=== PATIENT | female | born 1965 | race Caucasian/White ===

== ENCOUNTER 2019-06-19 15:04 | Observation (INO) | payer OTHER, SELFPAY ==
[2019-06-19] VITALS (11 sets, daily range): BP systolic 107–135; BP diastolic 59–86; PULSE 73–86; RESP 11–16; TEMP 36.6–37.7; O2SAT 98–100
[2019-06-19 15:35] LABS: Bilirubin Negative (Negative); Blood Negative (Negative); Clarity Clear (Clear); Glucose Negative (Negative); Ketones 80 mg/dL (Negative); Leukocyte Esterase Trace (Negative); Nitrite Negative (Negative); Urobilinogen 0.2 EU/dL (Up TO 0.2)
--- NOTE | 2019-06-19 15:41 | ED.GENADUL_ITS ---
Discharge Plan Disposition Patient Disposition: [facility] INPATIENT Condition: Good Discharge Details Chief Complaint: Abd Prob Admit Date/Time: 06/19/19 20:32 Admit Provider: Elda Aguilar Attending Provider: Elda Aguilar Primary Care Provider: Charlene Pimentel ED Provider: Katarzyna Ruiz Discharge Instructions Activity:: No strenuous activity or lifting over 5 pounds x 2 weeks Equipment/Supplies:: No Equipment Needed Diet:: Normal Diet Discharge Orders Discharge Orders: Discharge Order (Routine); Ordered 06/20/19 Ordered By: Elda Aguilar Discharge Data Discharge Date/Time-TO BE ENTERED AT DEPARTURE: 06/19/19 19:00 Medical Decision Making <Sanjeev Méndez MD - Last Filed: 06/25/19 08:05> 54-year-old female presents from home with 2 days of the gradual onset of lower right-sided abdominal pain. She states that it began after eating large amounts of popcorn, and also states she has been undergoing a raw fruit and vegetable cleanse. The patient is afebrile and generally well-appearing. She is tender in the right lower quadrant upon exam. Differential diagnosis includes diverticulitis, appendicitis, ascending urinary tract infection, colitis, partial bowel obstruction or ileus. IV placed, labs and urinalysis obtained, patient referred for CT images. As it is change of shift, patient will be signed out to Chely Zapata pending review of diagnostic studies and final disposition. Please see her note. <JOE Kay - Last Filed: 06/20/19 23:56> Care transitioned to myself from Dr. Méndez with labs and imaging pending. Please see his note for history and initial presentation. Labs reviewed. Patient has leukocytosis of 13.4, neutrophils 11.42. Slight anion gap of 12.3. CT is reviewed by radiologist, they contacted apartment to report patient has acute appendicitis. 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 Patient is aware of this anomaly. Discussed the findings of appendicitis with the patient. Contacted Dr. Villanueva he will come to evaluate and plan for appendectomy. Patient hydrated intravenously. Received preoperative abx. Has remained NPO. Discussed plan and CT findings in depth with patient and her family. All questions and concerns addressed. HPI <Sanjeev Méndez MD - Last Filed: 06/25/19 08:05> General Mode of arrival: ambulatory . Date/Time Provider Initiated Documentation: 06/19/19 15:11 . Limitations to Documentation: no limitations . Information obtained by: patient . History of Present Illness 54 year old F presents to the emergency department with the chief complaint of Right lower abdominal pain for 2 days with associated bloating, described as moderate, Quality is described as dull, and is localized to the abdomen and right. Patient started experiencing this day(s) and it has been constant. No relieving factors improve symptom(s), Eating worsens symptoms . Patient notes loss of appetite; denies fever/chills. Patient did receive the following treatments prior to arrival, none Related Data Home Medications Medication Instructions Recorded Confirmed cyclobenzaprine 5 - 10 mg PO HS PRN 06/19/19 06/19/19 gabapentin 100 - 300 mg PO QHS 06/19/19 06/19/19 ibuprofen 800 mg PO Q8H PRN #60 tab 06/20/19 Previous Rx's Medication Instructions Recorded ibuprofen 800 mg PO Q8H PRN #60 tab 06/20/19 Allergies Allergy/AdvReac Type Severity Reaction Status Date / Time egg Allergy Mild Skin Rash Unverified 06/19/19 15:27 [place] Allergy Unknown Unverified 06/19/19 15:27 [Floris *RETIRED-02/06/15] lactose AdvReac Intermediate Diarrhea Unverified 06/19/19 15:27 DUST Allergy Unknown Uncoded 06/19/19 15:27 G.DOMESTICUS DUST MITE Allergy Unknown Uncoded 06/19/19 15:27 General Stated Complaint: Abd Prob FILIBERTO: 3 Review of Systems <Sanjeev Méndez MD - Last Filed: 06/25/19 08:05> Narrative: Began after eating popcorn. Currently on a cleanse with raw vegetables and fruits. No fever. Marble constipated yesterday. No emesis. 8 systems reviewed and otherwise negative PFSH <Sanjeev Méndez MD - Last Filed: 06/25/19 08:05> Medical History (Updated 06/19/19 @ 18:54 by Elda Aguilar DO) Appendicitis (Acute) Dysfunctional uterine bleeding onset 04/2010. Heavy flow with intermenstrual bleeding. Dyspareunia entry dyspareunia after LAVH. Pt referred to [facility] for pelvic floor rehab. Intramural leiomyoma of uterus 2013 multiple fibroids [id number] intramural. [id number] intramural with submucosal component. Microcytic anemia 2012 Secondary to menorrhagia? Surgical History Breast, Lumpectomy RIGHT MASS REMOVED Colonoscopy - MAC 06/23/14 Endometrial Biopsy (10/01/13) Hysterectomy, Laproscopic LAVH with conservation of ovaries. 10cm fibroid. benign path. Thyroid (~1984) TUMOR REMOVED Tonsillectomy and adenoidectomy Family History Mother Personal history of malignant neoplasm BREAST Father Essential hypertension Autoimmune disease Heart disease LAMINECTOMY Sister Hyperthyroidism Sister Hyperthyroidism Grandfather Heart disease Stroke Grandfather Stroke Grandmother Personal history of malignant neoplasm BREAST Alzheimer's disease Grandmother Alzheimer's disease Heart disease Social History Smoking/Tobacco Use Status: Never Drug use: Never Do you feel safe at home: Yes Do you feel safe in your relationship?: Yes Exam <Sanjeev Méndez MD - Last Filed: 06/25/19 08:05> Narrative Exam Narrative: GEN: awake, alert, oriented 3. Pleasant, well groomed, interactive. HEAD: Normocephalic, atraumatic ENT: Mucous membranes moist, oropharynx unremarkable, External ear exam unremarkable EYES: PERRL, EOMI NECK: Full ROM, no [place], no menigismus CHEST/RESP: Nontender, clear to auscultation bilateral, no wheeze/rhonchi/rales CARDIOVASCULAR: RRR, no murmur, rub dennise. 2+ Rad pulse bilateral ABDOMEN: Soft, lower to right sided tenderness to palpation, mild rebound present, no mass. +Bowel sounds EXT: Full ROM, no edema, no rash Neuro: Grossly normal neurologic exam, conversant, interactive. Psych: Speech fluent, thoughts congruent, affect normal Course <Sanjeev Méndez MD - Last Filed: 06/25/19 08:05> Vital Signs Vital signs: Vital Signs Temperature 37.1 C 06/19/19 15:15 Pulse 73 06/19/19 15:15 Respiratory Rate 15 06/19/19 15:15 Blood Pressure 109/65 06/19/19 15:15 Pulse Oximetry 100 06/19/19 15:15 Temperature 37.1 C 06/19/19 15:15 Temperature Source Temporal Artery Scan 06/19/19 15:15 Pulse 73 06/19/19 15:15 Respiratory Rate 15 06/19/19 15:15 Respiratory Effort Non-Labored 06/19/19 15:22 Blood Pressure 109/65 06/19/19 15:15 Blood Pressure Position Supine 06/19/19 15:15 Pulse Oximetry 100 06/19/19 15:15 Oxygen Delivery Method Room Air 06/19/19 15:15 Oxygen Flow Rate 0 06/19/19 15:15 Pain Level 6 06/19/19 15:24 Lab/Test Results Lab/Test Results: Laboratory Tests Range/Units 06/19/19 15:15 Urine Color (Yellow) Yellow Urine Clarity (Clear) Clear Urine pH (5-8) 7.0 Ur Specific [place] (1.005-1.025) 1.020 Urine Protein (Negative) mg/dL Negative Urine Ketones (Negative) mg/dL 80 H Urine Blood (Negative) Negative Urine Nitrite (Negative) Negative Urine Bilirubin (Negative) Negative Urine Urobilinogen (Up TO 0.2) EU/dL 0.2 Ur Leukocyte Esterase (Negative) Trace H Urine Glucose (Negative) mg/dL Negative Sign Out <Sanjeev Méndez MD - Last Filed: 06/25/19 08:05> Sign Out Data: Sign Out Comment: FOllowup CT/labs Last updated by Sanjeev Méndez MD at 06/19/19 15:47
[2019-06-19 15:53] LABS: Bacteria Rare HPF (Negative); C & S Indicated? No; Crystals Negative HPF (Negative); Epithelial Cells Few HPF (Negative); Mucus Trace (Negative); RBC 0-2 HPF (0-2); WBC 0-2 HPF (0-5)
[2019-06-19] MEDS: Normal Saline 1,000 ML 1000 ML IV (16:05)
[2019-06-19 16:14] LABS: Abs Immature Grans 0.01 k/cumm (0.0-0.09); Absolute Basophil Count 0.01 k/cumm (0.0-0.2); Absolute Eosinophil Count 0.03 k/cumm (0.0-0.7); Absolute Lymphocyte Count 1.23 k/cumm (1.2-3.4); Absolute Monocyte Count 0.77 k/cumm (0.11-0.7); Absolute Neutrophil Count 11.42 k/cumm (1.2-6.7); Basophils % 0.1; Eosinophils % 0.2; HCT 41.8 % (36.0-46.0); HGB 14.3 g/dL (12.0-15.5); Immature Grans % 0.1; Lymphocytes % 9.1; Mean Corp. HGB Concentration 34.2 g/dL (32.0-36.0); Mean Corpuscular Hemoglobin 30.1 pg (27.0-33.0); Mean Platelet Volume 11.9 fL (8.0-11.0); Monocytes % 5.7; Neutrophils % 84.8; Platelet Count 187 x1000/uL (130-400); RBC 4.75 m/cumm (4.00-5.20); RBC Distribution Width 12.8 % (11.7-14.6); White Blood Cell Count 13.47 k/cumm (4.4-10.8)
[2019-06-19 16:30] LABS: ALT 13 U/L (14-59); AST 16 U/L (15-37); Alkaline Phosphatase 87 U/L (46-116); Anion Gap 12.3 mmol/L (3-11); BUN 12 mg/dL (7-18); Bilirubin, Total 1.2 mg/dL (0.2-1.0); CO2 24.7 mmol/L (21.0-32.0); CREATININE 0.73 mg/dL (0.55-1.02); Calcium 9.2 mg/dL (8.5-10.1); Chloride 102 mmol/L (98-107); Glucose 92 mg/dL (74-106); Potassium 3.6 mmol/L (3.5-5.1); Sodium 139 mmol/L (136-145); Total Protein 7.5 g/dL (6.4-8.2)
--- NOTE | 2019-06-19 16:54 | DI.CT_ITS ---
EXAM: CT ABDOMEN PELVIS W CLINICAL HISTORY: Right lower quadrant abdominal pain TECHNIQUE: 89 cc Omnipaque 350 IV. COMPARISON: No exams were available for comparison FINDINGS: The appendix is markedly distended. There is wall thickening as well as stranding around the appendi x. There is a small amount of fluid in the posterior pelvis. No abscess or perforation is seen. Th ere is no evidence of bowel obstruction. A horseshoe kidney is noted. There is some dilatation of b oth the renal pelves but no evidence of dilated ureter or ureteral calculi. Bladder is unremarkable. The patient is status hysterectomy. The ovaries are unremarkable. The lung bases are clear. The heart size is normal. A tiny cyst is noted in the liver. The gallbladder, spleen, pancreas and adre nals are unremarkable. Degenerative disc changes are seen at L3-4. The aorta is normal diameter. IMPRESSION: Acute appendicitis. No evidence of perforation or abscess.
[2019-06-19] MEDS: Normal Saline Flush 10 ML SYR IVP ×3 (16:58→22:55)
[2019-06-19] MEDS: Omnipaque 350 MG/ML 100 ML BTL IJ (16:58)
--- NOTE | 2019-06-19 17:51 | DI.VRAD_ITS ---
PROCEDURE INFORMATION: Exam: CT Abdomen And Pelvis With Contrast Exam date and time: 06/19/2019 3:45 PM Age: 54 years old Clinical history: Other: Right lower quadrant abdominal pain; Prior surgery; Surgery date: 6+ months; Surgery type: Hysterectomy 5 years ago TECHNIQUE: Imaging protocol: Computed tomography of the abdomen and pelvis with intravenous contrast. Radiation optimization: All CT scans at this facility use at least one of these dose optimization techniques: automated exposure control; mA and/or kV adjustment per patient size (includes targeted exams where dose is matched to clinical indication); or iterative reconstruction. Contrast material: OMNIPAQUE 350; Contrast volume: 89 ml; Contrast route: IV; COMPARISON: No relevant prior studies available. FINDINGS: Liver: There is a 3 mm well-circumscribed low-density in segment 7 of the liver (series 4, image 18). The liver is otherwise unremarkable. Gallbladder and bile ducts: Normal. No calcified stones. No ductal dilation. Pancreas: Normal. No ductal dilation. Spleen: Normal. No splenomegaly. Adrenals: Normal. No mass. 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 There is mild fullness of the renal collecting systems bilaterally greater on the left than the right. No renal or ureteral stone is identified. Stomach and bowel: Unremarkable. No obstruction. No mucosal thickening. Appendix: The appendix is distended up to 13 mm with mild irregular wall thickening and surrounding fat stranding consistent with acute appendicitis. There is a trace of free fluid within the pelvis which may related to the appendicitis but is more likely physiological. Intraperitoneal space: Unremarkable. No free air. No significant fluid collection. Vasculature: Unremarkable. No abdominal aortic aneurysm. Lymph nodes: Unremarkable. No enlarged lymph nodes. Bladder: Unremarkable as visualized. Reproductive: Unremarkable as visualized. Bones/joints: There is convex left scoliosis of the lumbar spine with corresponding degenerative disc disease along the inner convexity on the right at L3-4 and on the left at L4-5. Vertebral end plate osteophyte at L3-4 extends posteriorly to moderately narrow the right neural foramen. Small benign-appearing sclerotic foci consistent with bone islands are noted in the right femur and right ischium. Soft tissues: Unremarkable. IMPRESSION: 1. Acute appendicitis without perforation or abscess. 2. Small amount of free fluid within the pelvis which is likely physiological but less likely related to the appendicitis. 3. 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 This is likely chronic. 4. 3 mm low-density hepatic lesion. For low or average risk patients, no further follow-up. For high risk patients, follow-up CT or MRI in 6 months. May need more frequent follow-up in some situations, such as a cirrhotic patient who is a liver transplant candidate. Findings were discussed with EDITH MOLINA at 06/19/2019 5:33 PM EST. Dictated and Authenticated by: Johnathon Wagner MD. Ordering:JENNY Pace MD
[2019-06-19] MEDS: Lactated Ringers 1,000 ML 200 ML IV (17:54)
--- NOTE | 2019-06-19 18:06 | HPE_ITS ---
Date of service: 06/19/19 Time of Service: 18:10 Assessment and Plan Assessment and plan (1) Appendicitis: Status: Acute Assessment and plan: Patient will be going for laparoscopic appendectomy. I did review the CT scan scans and labs. I did discuss with patient what she could expect during the surgery postprocedure recovery time and risks. Risks include but not limited to: Bleeding, infection, pneumonia, blood clots,. Complex risk of complications from anesthesia. Risk of abscess. Possible open procedure. We will plan on keeping her overnight for have been described in the baring no further complications History of Present Illness Consults Consult date: 06/19/19 Narrative: 54-year-old female presents from home with 2 days of the gradual onset of lower right-sided abdominal pain. She states that it began after eating large amounts of popcorn, and also states she has been undergoing a raw fruit and vegetable cleanse. The pain at this point is in the right lower quadrant at McBurney's point. Radiates down into the groin into the right leg. This occurred in the past. She was having some constipation and took a stool softener. She had a normal bowel movement today with no blood. She had chills at home and a little slight elevated temp at 99.8 today. She was very nauseous and has been able to eat. She denies any dysuria signs and symptoms. She is never had anything like this before, she has no history of GI problem. She denies any travel or trauma. She has been on a dietary cleanse for the last 5 days. She is has not started new medications. Had a history of LAVH. She had no problems with anesthesia. CT scan is reviewed and shows acute appendicitis. She has a low-grade white count. She has no diffuse peritonitis. Rovsing's and rebound is negative. Review of Systems All systems reviewed & are unremarkable except as noted in HPI and below PFSH Medical History Dysfunctional uterine bleeding onset 04/2010. Heavy flow with intermenstrual bleeding. Dyspareunia entry dyspareunia after LAVH. Pt referred to [facility] for pelvic floor rehab. Intramural leiomyoma of uterus 2013 multiple fibroids [id number] intramural. [id number] intramural with submucosal component. Microcytic anemia 2012 Secondary to menorrhagia? Surgical History Breast, Lumpectomy RIGHT MASS REMOVED Colonoscopy - MAC 06/23/14 Endometrial Biopsy (10/01/13) Hysterectomy, Laproscopic LAVH with conservation of ovaries. 10cm fibroid. benign path. Thyroid (~1984) TUMOR REMOVED Tonsillectomy and adenoidectomy Family History Mother Personal history of malignant neoplasm BREAST Father Essential hypertension Autoimmune disease Heart disease LAMINECTOMY Sister Hyperthyroidism Sister Hyperthyroidism Grandfather Heart disease Stroke Grandfather Stroke Grandmother Personal history of malignant neoplasm BREAST Alzheimer's disease Grandmother Alzheimer's disease Heart disease Social History Smoking/Tobacco Use Status: Never Drug use: Never Do you feel safe at home: Yes Do you feel safe in your relationship?: Yes Meds Home Medications and Allergies Home Medications Medication Instructions Recorded Confirmed Type cyclobenzaprine 5 - 10 mg PO HS PRN 06/19/19 06/19/19 History gabapentin 100 - 300 mg PO QHS 06/19/19 06/19/19 History Allergies Allergy/AdvReac Type Severity Reaction Status Date / Time egg Allergy Mild Skin Rash Unverified 06/19/19 15:27 [place] Allergy Unknown Unverified 06/19/19 15:27 [[place] *RETIRED-02/06/15] lactose AdvReac Intermediate Diarrhea Unverified 06/19/19 15:27 DUST Allergy Unknown Uncoded 06/19/19 15:27 G.DOMESTICUS DUST MITE Allergy Unknown Uncoded 06/19/19 15:27 Exam Const General: cooperative, healthy appearing, comfortable, no acute distress, well developed and well groomed Nutritional Appearance: average body habitus and well nourished Orientation: alert, awake and oriented x3 HENMT Head: normal to inspection, normocephalic and atraumatic Ears: hearing grossly normal bilaterally and external ears normal General nose exam: external nose normal Face and sinus: normal facial exam and sinuses nontender Mouth: oral mucosae normal, lip normal, tongue normal and moist mucous membranes Teeth and gingiva: dentition normal Eyes General: appearance normal, both eyes and all related structures Conjunctivae: conjunctivae normal Sclera: sclerae normal Pupils: PERRL Neck Neck: normal visual inspection and full ROM Chest Chest: normal inspection of the chest Resp Effort & Inspection: normal respiratory effort, able to speak in complete sentences, no cough, no nasal flaring, not tachypneic and no use of accessory muscles Auscultation: clear to auscultation bilaterally, no rales, no rhonchi and no wheezes Cardio Jugular venous pressure: no JVD Rate: regular rate Rhythm: regular rhythm GI Inspection: normal to inspection, no edema and non-distended Palpation: soft, no masses, tender in the RLQ and at McBurney's point and No ascites Auscultation: normal bowel sounds Skin General skin exam: no rashes or lesions noted Trauma: no lacerations or abrasions Neuro General: alert, oriented x3, oriented, gait normal, moves all extremities, no focal motor deficits and CN's II-XI intact bilaterally Cognition: normal cognition Speech: speech normal Gait: normal gait Motor: muscle tone normal throughout Extrem General: normal to inspection, full ROM and no clubbing, cyanosis or edema Psych Appearance: grossly normal and well kempt Mental Status: mental status grossly normal Speech and Movement: speech and movement normal Affect: normal affect Results Labs Result diagrams: 06/19/19 16:05 06/19/19 16:05 Labs: Laboratory Results - last 24 hr 06/19/19 06/19/19 06/19/19 15:15 16:05 16:05 WBC 13.47 H RBC 4.75 Hgb 14.3 Hct 41.8 MCV 88.0 MCH 30.1 MCHC 34.2 RDW 12.8 Plt Count 187 MPV 11.9 H Immature Gran % 0.1 Neutrophils % 84.8 Lymphocytes % 9.1 Monocytes % 5.7 Eosinophils % 0.2 Basophils % 0.1 Absolute Neutrophils 11.42 H Absolute Lymphocytes 1.23 Absolute Monocytes 0.77 H Absolute Eosinophils 0.03 Absolute Basophils 0.01 Sodium 139 Potassium 3.6 Chloride 102 Carbon Dioxide 24.7 Anion Gap 12.3 H BUN 12 Creatinine 0.73 Estimated GFR/1.73 m2 >= 60.00 Glucose 92 Calcium 9.2 Total Bilirubin 1.2 H AST 16 ALT 13 L Alkaline Phosphatase 87 Total Protein 7.5 Albumin 4.0 Urine Color Yellow Urine Clarity Clear Urine pH 7.0 Ur Specific [place] 1.020 Urine Protein Negative Urine Ketones 80 H Urine Blood Negative Urine Nitrite Negative Urine Bilirubin Negative Urine Urobilinogen 0.2 Ur Leukocyte Esterase Trace H Urine RBC 0-2 Urine WBC 0-2 Ur Epithelial Cells Few Urine Crystals Negative Urine Bacteria Rare Urine Mucus Trace Ur Culture Indicated? No Urine Glucose Negative Last Vital Signs Temp 37.7 C H 06/19/19 17:36 Pulse 86 06/19/19 17:36 Resp 16 06/19/19 17:36 BP 126/73 06/19/19 17:36 Pulse Ox 98 06/19/19 17:36
[2019-06-19] MEDS: PIPERACILLIN/TAZO 3.375 GM in Normal Saline 50 ML IVPB (18:39)
--- NOTE | 2019-06-19 19:40 | APP_PTH ---
PATIENT: Yanni Lora LOC: [id number]#:[id number] AGE/SX: 54/F ROOM: RE06/19/[address]: Elda Aguilar : 1965 BED: A DIS: 06/20/2019 SPEC #: [id number] RECD: 06/20/19 12:55 STATUS: MAHI REQ #: [id number] HARPER: 06/19/19 19:[address]: Elda Aguilar DEPT: Surgical Specimen RECD BY: Nabila Fitzgerald ENTERED: 06/20/19 12:56 SP TYPE: Appendix OTHR DR: Charlene Pimentel Tissues: 1 - APPENDIX NOT INCIDENTAL Procedures: GROSS AND MICRO LEVEL 3 Comments: [id number]
[2019-06-19] MEDS: Lactated Ringers 1,000 ML 150 ML IV (20:00)
--- NOTE | 2019-06-19 20:18 | W.PM.OP ---
Date of service: 06/19/19 Time of Service: 20:18 Operative Note Operative Note DATE OF PROCEDURE: 06/19/19 PRE-OP DIAGNOSIS: acute appy POST-OP DIAGNOSIS: same PROCEDURE: lap appy SURGEON: Nabil Matthews ENGINEERING MANAGER: Genesis Caceres ANESTHESIA: GETA ESTIMATED BLOOD LOSS: 5 PATHOLOGY: other Patient was transported to: PACU Patient's condition: stable Procedure Description: INDICATIONS: The patient has signs and symptoms compatible with acute appendicitis and is brought to the OR for laparoscopic appendectomy, possible open procedure. Informed consent is obtained for the procedural (explained in simple layman's terms that the pt and/or family could understand) explaining risks vs benefits and alternatives to the procedure and consequences if we do not do the procedure. Risks include but are not limited to:bleeding,infections, pneumonia, blood clots/DVT/PE, anesthesia(aspiration, damage to teeth/airway/MO/CVA//prolonged mechanical ventilation/PTX/IV infections), damage to bowel, bladder,blood vessels, ureters. Damage to solid organs requiring removal. Infertility. Leakage from anastomosis requiring colostomy. Wound infections requirng further surgery. Scarring and disfigurement. Subsequent bowel obstructions from scar tissue. Possible open procedure if minimaly invsive procedure is being attempted. Abscess and stump appendicitis as well as others. DESCRIPTION OF PROCEDURE: The patient was brought to the operating room suite and placed in supine position. Anesthesia was administered per the Department of Anesthesia. A Valladares catheter and OG tube are placed. The patient was prepped and draped in the usual sterile fashion using ChloraPrep scrub solution. Pause for the cause was done. 30 mL of 1% buffered was used for local anesthetization. She does have a small hernia. Cutdown was done with her old incision. insufflation was begun. When 15 mm of pressure was noted on the monitor, the Camera inserted through the port shows no damage to underlying structures. Bowel, liver and stomach that are visualized are normal in appearance. Pelvic organs are not visualized. The appendix is inflamed, erythematous,enlarged, & distened, but does not appear to have been ruptured. There is no purulent drainage in the pelvis. It is not adhered to any adjacent structures. A 12 mm port was then placed in the suprapubic position under direct visualization following creation of a local field block as well as a second 5 mm port in the LLQ. The appendix is elevated and a rent dissected into the mesentery. The base of the appendix is healthy and will hold leisa. A Endo-MAXINE stapler is placed across the base of the appendix and fired and 2nd stapler placed across the mesentery and fired. The appendix is placed in a bag and brought out. There is no bleeding or enteric leakage from the staple lines. Both ovaries are identified and are nl in appearence. She did have a small incidental umbilical hernia. This is repair w/ a 2-0 vicryl. The scope and ports are removed. Pneumoperitoneum is evacuated. The fascia under the 12 mm port is closed with 0 Vicryl. There was no bleeding from the port sites as when they removed and the pneumoperitoneum evacuated. The wounds were copiously irrigated and closed in 2 layers with 4-0 Monocryl. Sterile tape and sterile dressings are applied. The patient tolerated the procedure without complication, transferred to the recovery room in stable condition. Family was apprised of patient condition. NABIL MATTHEWS, DO ?
[2019-06-19] MEDS: ACETAMINOPHEN 1,000 MG/100 ML BTL 400 MG IVPB (21:11)
--- NOTE | 2019-06-19 21:13 | W.PM.PROGNOT ---
Date of Service Date of service: 06/19/19 Time of Service: 21:17 Assessment and Plan Assessment and plan (1) Appendicitis: Status: Acute Assessment and plan: [facility] General Surgery Post-Op Progress Note Plan: Encourage ambulation and pulmonary toilet Continue local wound care Pain control measures are effective diet clears tonight postop diet in am Interval History: Doing well. Continues to improve. Pain is well-controlled. No fevers. The pt's diet is clears. The pt is having no nausea or vomiting. The pt has no chest pain, SOB, productive cough. There has no leg pain or swelling or oredness. All labs, radiological & adjuvant studies, cultures and available path reports have been reviewed. Medications and treatment regimen have been adjusted apriopriately. Medications: ROS REVIEW OF SYSTEMS GENERAL: No fevers or chills. Denies fatigue, recent weight loss. HEENT: No sinus drainage. No changes with vision or hearing. No difficulty swallowing. LYMPHATICS: No swollen nodes in axilla, neck or groin. CARDIOVASCULAR: Denies chest pain, palpitations and dyspnea on exertion. PULMONARY: No shortness of breath or cough. No increase in sputum production. GI: Denies melena, bright red blood in stools. No hematemesis. No constipation or diarrhea. : No dysuria or hematuria. SKIN: No recent rashes or ulcers. HEMATOLOGY: No history of easy bruising or bleeding. ENDOCRINE: No history of diabetes or thyroid problems. NEUROLOGY: No history of seizures or headaches. No motor or sensory changes. Musculoskeletal: no calf pain or swelling. No le redness Physical Exam: All vitals have been reviewed A & O x3 in NAD SHEENT examination revealed Mucous membranes are moist. No jaundice. Dentition is intact No JVD. No bruising. No corneal abrasions. Examination of the chest revealed Normal excursion. CTA b/l. No R/R/W. Examination of the heart revealed NSR. No new murmers. No s/s of fluid overload. Examination of the abdomen revealed + bs incision C/D/I. The neuromuscular examination was intact. No focal deficeits. Moving ext. Independently. No calf pain or tenderness. Distal peripheral pulses are intact. No skin breakdown Pt were able to express questions and concerns and were apprised of there condition and expected discharge. . Objective Objective Clinical Data: Abnormal lab results 06/19/19 06/19/19 06/19/19 Range/Units 15:15 16:05 16:05 WBC 13.47 H (4.4-10.8) k/cumm MPV 11.9 H (8.0-11.0) fL Absolute Neutrophils 11.42 H (1.2-6.7) k/cumm Absolute Monocytes 0.77 H (0.11-0.7) k/cumm Anion Gap 12.3 H (3-11) mmol/L Total Bilirubin 1.2 H (0.2-1.0) mg/dL ALT 13 L (14-59) U/L Urine Ketones 80 H (Negative) mg/dL Ur Leukocyte Esterase Trace H (Negative) Vital Signs Temperature 37 C 06/19/19 20:29 Temperature Source Temporal Artery Scan 06/19/19 18:22 Pulse 78 06/19/19 20:29 Respiratory Rate 15 06/19/19 20:29 Respiratory Effort Non-Labored 06/19/19 15:22 Blood Pressure 114/66 06/19/19 20:29 Blood Pressure Position Supine 06/19/19 15:15 Pulse Oximetry 99 06/19/19 20:29 Respiratory End-tidal CO2 33 06/19/19 20:29 Oxygen Delivery Method Room Air 06/19/19 20:29 Oxygen Flow Rate 0 06/19/19 20:29 Pain Level 6 06/19/19 21:11 Intake & Output 06/18/19 06/19/19 06/19/19 23:59 11:59 23:59 Intake Total 2139 / 2139 Output Total 100 / 100 Balance 2039 Weight 61.7 kg Intake: IV 2099 / 2099 Oral 40 / 40 Output: Urine 100 / 100 Other: Urine Color Yellow Urine Appearance Clear Emesis Description None Laboratory Results WBC 13.47 k/cumm (4.4-10.8) H 06/19/19 16:05 RBC 4.75 m/cumm (4.00-5.20) 06/19/19 16:05 Hgb 14.3 g/dL (12.0-15.5) 06/19/19 16:05 Hct 41.8 % (36.0-46.0) 06/19/19 16:05 MCV 88.0 fL (80-95) 06/19/19 16:05 MCH 30.1 pg (27.0-33.0) 06/19/19 16:05 MCHC 34.2 g/dL (32.0-36.0) 06/19/19 16:05 RDW 12.8 % (11.7-14.6) 06/19/19 16:05 Plt Count 187 x1000/uL (130-400) 06/19/19 16:05 MPV 11.9 fL (8.0-11.0) H 06/19/19 16:05 Immature Gran % 0.1 06/19/19 16:05 Neutrophils % 84.8 06/19/19 16:05 Lymphocytes % 9.1 06/19/19 16:05 Monocytes % 5.7 06/19/19 16:05 Eosinophils % 0.2 06/19/19 16:05 Basophils % 0.1 06/19/19 16:05 Absolute Neutrophils 11.42 k/cumm (1.2-6.7) H 06/19/19 16:05 Absolute Lymphocytes 1.23 k/cumm (1.2-3.4) 06/19/19 16:05 Absolute Monocytes 0.77 k/cumm (0.11-0.7) H 06/19/19 16:05 Absolute Eosinophils 0.03 k/cumm (0.0-0.7) 06/19/19 16:05 Absolute Basophils 0.01 k/cumm (0.0-0.2) 06/19/19 16:05 Sodium 139 mmol/L (136-145) 06/19/19 16:05 Potassium 3.6 mmol/L (3.5-5.1) 06/19/19 16:05 Chloride 102 mmol/L (98-107) 06/19/19 16:05 Carbon Dioxide 24.7 mmol/L (21.0-32.0) 06/19/19 16:05 Anion Gap 12.3 mmol/L (3-11) H 06/19/19 16:05 BUN 12 mg/dL (7-18) 06/19/19 16:05 Creatinine 0.73 mg/dL (0.55-1.02) 06/19/19 16:05 Estimated GFR/1.73 m2 >= 60.00 (mL/min/1.73m2) 06/19/19 16:05 Glucose 92 mg/dL (74-106) 06/19/19 16:05 Calcium 9.2 mg/dL (8.5-10.1) 06/19/19 16:05 Total Bilirubin 1.2 mg/dL (0.2-1.0) H 06/19/19 16:05 AST 16 U/L (15-37) 06/19/19 16:05 ALT 13 U/L (14-59) L 06/19/19 16:05 Alkaline Phosphatase 87 U/L (46-116) 06/19/19 16:05 Total Protein 7.5 g/dL (6.4-8.2) 06/19/19 16:05 Albumin 4.0 g/dL (3.4-5.0) 06/19/19 16:05 Urine Color Yellow (Yellow) 06/19/19 15:15 Urine Clarity Clear (Clear) 06/19/19 15:15 Urine pH 7.0 (5-8) 06/19/19 15:15 Ur Specific [place] 1.020 (1.005-1.025) 06/19/19 15:15 Urine Protein Negative mg/dL (Negative) 06/19/19 15:15 Urine Ketones 80 mg/dL (Negative) H 06/19/19 15:15 Urine Blood Negative (Negative) 06/19/19 15:15 Urine Nitrite Negative (Negative) 06/19/19 15:15 Urine Bilirubin Negative (Negative) 06/19/19 15:15 Urine Urobilinogen 0.2 EU/dL (Up TO 0.2) 06/19/19 15:15 Ur Leukocyte Esterase Trace (Negative) H 06/19/19 15:15 Urine RBC 0-2 HPF (0-2) 06/19/19 15:15 Urine WBC 0-2 HPF (0-5) 06/19/19 15:15 Ur Epithelial Cells Few HPF (Negative) 06/19/19 15:15 Urine Crystals Negative HPF (Negative) 06/19/19 15:15 Urine Bacteria Rare HPF (Negative) 06/19/19 15:15 Urine Mucus Trace (Negative) 06/19/19 15:15 Ur Culture Indicated? No 06/19/19 15:15 Urine Glucose Negative mg/dL (Negative) 06/19/19 15:15
[2019-06-19] MEDS: Enoxaparin 40 MG/0.4 ML SYR SC (22:55)
[2019-06-19] MEDS: Ketorolac 30 MG/ML VIAL IVP (22:55)
[2019-06-19] MEDS: traMADol 50 MG TAB PO (23:11)
[2019-06-20 03:18] VITALS: BP 112/73; PULSE 62; RESP 17; TEMP 36.7; O2SAT 97
[2019-06-20] MEDS: Ketorolac 30 MG/ML VIAL IVP ×2 (03:44→09:46)
[2019-06-20] MEDS: Normal Saline Flush 10 ML SYR IVP ×2 (03:46→09:47)
[2019-06-20] MEDS: ACETAMINOPHEN 1,000 MG/100 ML BTL 400 MG IVPB (03:47)
[2019-06-20] MEDS: Lactated Ringers 1,000 ML 150 ML IV (03:47)
[2019-06-20 07:40] VITALS: BP 110/72; PULSE 65; RESP 17; TEMP 36.7; O2SAT 99
[2019-06-20] MEDS: Milk of Magnesia 30 ML CUP PO (08:58)
--- NOTE | 2019-06-20 09:06 | PGE_ITS ---
Documented by User: JOE Cuello 06/20/19 09:09 Date of Service Date of service: 06/20/19 Time of Service: 09:06 Assessment and Plan Assessment and plan (1) Appendicitis: Status: Acute Assessment and plan: POD #1 s/p Laparoscopic Appendectomy Diet- Started regular diet this morning. Encouraged ambulation this morning. Will d/c home later today, once tolerating regular diet. Subjective Subjective Interval history since last seen: Patient reports that she has 1/10PL, but it's not really pain. Denies nausea or vomiting. Exam Const General: cooperative, healthy appearing and comfortable Orientation: alert and oriented x3 Resp Effort & Inspection: normal respiratory effort, no audible wheezes and no cough GI Inspection: normal to inspection and non-distended Palpation: soft, no guarding and tender Objective Objective Clinical Data: Abnormal lab results 06/19/19 06/19/19 06/19/19 Range/Units 15:15 16:05 16:05 WBC 13.47 H (4.4-10.8) k/cumm MPV 11.9 H (8.0-11.0) fL Absolute Neutrophils 11.42 H (1.2-6.7) k/cumm Absolute Monocytes 0.77 H (0.11-0.7) k/cumm Anion Gap 12.3 H (3-11) mmol/L Total Bilirubin 1.2 H (0.2-1.0) mg/dL ALT 13 L (14-59) U/L Urine Ketones 80 H (Negative) mg/dL Ur Leukocyte Esterase Trace H (Negative) Vital Signs Temperature 36.7 C 06/20/19 03:18 Temperature Source Tympanic 06/20/19 03:18 Pulse 62 06/20/19 03:18 Pulse Rhythm Regular 06/20/19 03:45 Respiratory Rate 17 06/20/19 03:18 Respiratory Effort Non-Labored 06/20/19 03:45 Respiratory Depth Normal 06/20/19 03:45 Respiratory Pattern Normal 06/20/19 03:45 Blood Pressure 112/73 06/20/19 03:18 Blood Pressure Position Supine 06/19/19 15:15 Pulse Oximetry 97 06/20/19 03:18 Respiratory End-tidal CO2 33 06/19/19 20:29 Oxygen Delivery Method Room Air 06/20/19 03:18 Oxygen Flow Rate 0 06/20/19 03:18 Pain Level 2 06/20/19 03:44 Intake & Output 06/19/19 06/20/19 06/20/19 18:59 06:59 18:59 Intake Total 1150 / 3260 2110 / 3260 Output Total 1300 / 1300 Balance 1149 / 1959 Weight 61.7 kg 61.7 kg Intake: IV 1150 / 0 2069 / 0 Oral 40 / 40 Output: Urine 1300 / 1300 Other: Urine Color Yellow Urine Appearance Clear Urine Odor None Emesis Description None Voiding Methods Toilet Laboratory Results WBC 13.47 k/cumm (4.4-10.8) H 06/19/19 16:05 RBC 4.75 m/cumm (4.00-5.20) 06/19/19 16:05 Hgb 14.3 g/dL (12.0-15.5) 06/19/19 16:05 Hct 41.8 % (36.0-46.0) 06/19/19 16:05 MCV 88.0 fL (80-95) 06/19/19 16:05 MCH 30.1 pg (27.0-33.0) 06/19/19 16:05 MCHC 34.2 g/dL (32.0-36.0) 06/19/19 16:05 RDW 12.8 % (11.7-14.6) 06/19/19 16:05 Plt Count 187 x1000/uL (130-400) 06/19/19 16:05 MPV 11.9 fL (8.0-11.0) H 06/19/19 16:05 Immature Gran % 0.1 06/19/19 16:05 Neutrophils % 84.8 06/19/19 16:05 Lymphocytes % 9.1 06/19/19 16:05 Monocytes % 5.7 06/19/19 16:05 Eosinophils % 0.2 06/19/19 16:05 Basophils % 0.1 06/19/19 16:05 Absolute Neutrophils 11.42 k/cumm (1.2-6.7) H 06/19/19 16:05 Absolute Lymphocytes 1.23 k/cumm (1.2-3.4) 06/19/19 16:05 Absolute Monocytes 0.77 k/cumm (0.11-0.7) H 06/19/19 16:05 Absolute Eosinophils 0.03 k/cumm (0.0-0.7) 06/19/19 16:05 Absolute Basophils 0.01 k/cumm (0.0-0.2) 06/19/19 16:05 Sodium 139 mmol/L (136-145) 06/19/19 16:05 Potassium 3.6 mmol/L (3.5-5.1) 06/19/19 16:05 Chloride 102 mmol/L (98-107) 06/19/19 16:05 Carbon Dioxide 24.7 mmol/L (21.0-32.0) 06/19/19 16:05 Anion Gap 12.3 mmol/L (3-11) H 06/19/19 16:05 BUN 12 mg/dL (7-18) 06/19/19 16:05 Creatinine 0.73 mg/dL (0.55-1.02) 06/19/19 16:05 Estimated GFR/1.73 m2 >= 60.00 (mL/min/1.73m2) 06/19/19 16:05 Glucose 92 mg/dL (74-106) 06/19/19 16:05 Calcium 9.2 mg/dL (8.5-10.1) 06/19/19 16:05 Total Bilirubin 1.2 mg/dL (0.2-1.0) H 06/19/19 16:05 AST 16 U/L (15-37) 06/19/19 16:05 ALT 13 U/L (14-59) L 06/19/19 16:05 Alkaline Phosphatase 87 U/L (46-116) 06/19/19 16:05 Total Protein 7.5 g/dL (6.4-8.2) 06/19/19 16:05 Albumin 4.0 g/dL (3.4-5.0) 06/19/19 16:05 Urine Color Yellow (Yellow) 06/19/19 15:15 Urine Clarity Clear (Clear) 06/19/19 15:15 Urine pH 7.0 (5-8) 06/19/19 15:15 Ur Specific [place] 1.020 (1.005-1.025) 06/19/19 15:15 Urine Protein Negative mg/dL (Negative) 06/19/19 15:15 Urine Ketones 80 mg/dL (Negative) H 06/19/19 15:15 Urine Blood Negative (Negative) 06/19/19 15:15 Urine Nitrite Negative (Negative) 06/19/19 15:15 Urine Bilirubin Negative (Negative) 06/19/19 15:15 Urine Urobilinogen 0.2 EU/dL (Up TO 0.2) 06/19/19 15:15 Ur Leukocyte Esterase Trace (Negative) H 06/19/19 15:15 Urine RBC 0-2 HPF (0-2) 06/19/19 15:15 Urine WBC 0-2 HPF (0-5) 06/19/19 15:15 Ur Epithelial Cells Few HPF (Negative) 06/19/19 15:15 Urine Crystals Negative HPF (Negative) 06/19/19 15:15 Urine Bacteria Rare HPF (Negative) 06/19/19 15:15 Urine Mucus Trace (Negative) 06/19/19 15:15 Ur Culture Indicated? No 06/19/19 15:15 Urine Glucose Negative mg/dL (Negative) 06/19/19 15:15 Documented by User: Elda Aguilar DO 06/20/19 20:29 Assessment and Plan Assessment and plan (1) Appendicitis: Status: Acute Assessment and plan: pt seen adn examined agree w/ above. d/w pt findings at surgery
--- NOTE | 2019-06-20 10:45 | PDOC.DSDIS_ITS ---
Discharge Plan Disposition Patient Disposition: HOME Condition: Good Discharge Details Chief Complaint: Abd Prob Reason For Visit: ACUTE APENDECITIS Admit Date/Time: 06/19/19 20:32 Admit Provider: Elda Aguliar Attending Provider: Elda Aguilar Primary Care Provider: Charlene Pimentel ED Provider: Katarzyna Ruiz Home Meds and New Rx's Prescriptions: New ibuprofen 800 mg tablet 800 mg PO Q8H PRN (Reason: pain) Qty: 60 RF: 0 No Action cyclobenzaprine 10 mg Tablet 5 - 10 mg PO HS PRNRF: 0 gabapentin 100 mg Capsule 100 - 300 mg PO QHS RF: 0 Discharge Instructions Additional Instructions: Keep an ice bag on the incision. 20 minutes on and 20 minutes off. Ice keeps the swelling down and swelling causes pain. Make sure you wrap the ice pack in a towel and don't apply directly to the skin. -No driving x 72 hrs or of you are taking narcotic pain medications. -If you have estefania or sutures in place, they will be removed at your clinic appointment in 7-10 days. -Follow-up with Dr. Aguilar in 1 week. -soft diet: No beef/pork x1 -week. -no straining to move bowels -pain meds are very constipating: if you do not move your bowels daily take a dose of OTC milk of magnesia -It is ok to shower. No bathe, soaking, swimming or hot tubs -Keep wound clean and dry. Wash incision with soap and water daily. Pat dry, don't rub. You may find that your appetite is smaller. Eat 3-6 small meals throughout the day. It is important to drink lots of water after surgery, 6-10 glasses a day. -If you were given an incentive spirometry (\breathing manager green\[id number]), continue to do this 10x/hour while awake. -We do want you up walking, at least 5-6 times per day. This is very important to prevent pneumonia and blood clots. You can climb stairs, take them slowly. -No lifting over 5 pounds x 2 wks This is very important to avoid developing a hernia in your incision. -You may find that you are very tired after surgery- this is normal. -please do not smoke for a minimum of 72 hours after surgery. Caring for Your Incision You?ll need to help care for your incision after surgery and certain medical procedures. To close an incision, your healthcare provider used stitches (sutures), special strips of surgical tape called Steri-Strips, surgical estefania, or surgical skin glue. Follow the tips on this sheet to help stop bleeding, speed healing, and prevent infection of your incision. Pain Control Use ice! Ice keeps the swelling down and swelling is what causes pain. Never apply ice directly to the skin. Wrap it in a towel or cloth. Apply ice 20 minutes on and 20 minutes off for pain control. Use as needed. Take tylenol 325 mg by mouth with food every 4 hours as needed for pain. Or ibuprofen 400 mg by mouth with food every 4 hours as needed for pain. Do not take tylenol if you have a history of heavy drinking , hepatits C or liver problems. Do not take ibuprofen if you have a history of stomach ulcers/problems, bleeding problem or kidney issues. Types of incision closures ? Surgical stitches (sutures) are placed by sewing the edges of an incision together with surgical thread. Sutures are either absorbable or non-absorbable. Absorbable sutures break down in the body over time. Non-absorbable sutures need to be removed. ? Home care ? Always wash your hands before touching your incision. ? Keep the incision clean, dry, and out of water, keep the incision out of water. ? Do not to pick at the scabs. Scabs help protect the wound. ? You can take a shower in 24 hours and wash the incision with soap and water. Pat dry/don?t scrub. It?s OK to wash around the incision. But don?t spray water directly on it. ? Pat stitches dry if they get wet. Don't rub. ? Check the incision site daily for pain, redness, drainage, swelling, or separation of the incision edges. ? If there is a bandage (dressing) over the incision, change this every 24 hours as instructed by your provider. Using clean hands change the dressing as directed by your healthcare provider. Always wash your hands before changing your dressing. ? Make sure any clothing that touches the incision is loose-fitting. This will prevent rubbing. If the incision is on the head, keep your child from wearing caps or other head coverings. These may rub against the incision. ? Try to avoid from rough play, contact sports, or physical activities for two weeks. This can put you at risk of opening the incision. ? Make sure you avoid doing things that could cause dirt or sweat to get in or on the incision. As your incision heals, the skin may appear pink or red. It may also feel slightly bumpy or raised. This is called a healing ridge. Over time, the color should fade and the raised skin will become less noticeable. Care for specific closures : ? Sutures or estefania. Once you no longer need to keep these dry, clean the incision or wound daily, generally after the first 24 hours. First remove the bandage using clean hands. Then wash the area gently with soap and warm water. Use a wet cotton swab to loosen and remove any blood or crust that forms. After cleaning, put a thin layer of antibiotic ointment on. Then put on a new bandage. Follow-up care Estefania or sutures generally need to be removed in 7-10 days. Be sure to return for suture or staple removal as directed. If dissolving stitches were used in your mouth, these will not need to be removed. They should fall out or dissolve on their own. If tape closures were used, remove them yourself when your healthcare provider tells you to if they have not fallen off on their own. When to seek medical care Call your healthcare provider right away if you have any of these: ? More pain, redness, swelling, bleeding, or foul-smelling discharge around the incision area ? Fever of 101?F (38.3?C) or higher, or as directed by your child's healthcare provider ? Shaking chills ? Vomiting or nausea that doesn?t go away ? Numbness, coldness, or tingling around the incision area, or changes in skin color ? Opening of the sutures or wound Stitches or estefania come apart or fall out or surgical tape falls off before 7 days, or as directed by your healthcare provider [facility] Monday to make appt yun/ Dr. Aguilar in 7-10 days. [phone] Activity:: No strenuous activity or lifting over 5 pounds x 2 weeks Equipment/Supplies:: No Equipment Needed Diet:: Normal Diet DS: Diagnosis Discharge Diagnosis (1) Appendicitis: Status: Acute
[2019-06-20 11:26] VITALS: BP 110/68; PULSE 61; RESP 17; TEMP 36.6; O2SAT 98
== END 2019-06-20 12:45 | disposition home or self-care (01) | DRG 343 ==
LOC: ER 15:58 → SUR 18:52 → MS 20:43
PROVIDERS: Emergency Medicine; Admitting Provider Surgery; Emergency Provider Physician Assistant; PCP Nurse Practitioner; Visit Provider Surgery
PROC: 0DTJ4ZZ Resection of Appendix, Percutaneous Endoscopic Approach (ICD-10-PCS; CPT 44970; principal; 2019-06-19 18:20)
DX: K35.890 Other acute appendicitis without perforation or gangrene (principal); Z23 Encounter for immunization
CPT/HCPCS: 44970; 36415; 80053; 96360; 96361; 99222; 99285; J1650; NC; 74177; 81003; 81015; 85025; 88304; J0131; J1100; J1885; J2250; J2405; J2543; J3010; J3490

== ENCOUNTER 2020-01-13 12:25 | Outpatient (REF) | payer OTHER, SELFPAY ==
[2020-01-13 20:14] LABS: Vitamin B12 932 pg/mL (193-986)
== END 2020-01-13 12:45 ==
LOC: NCHCN 12:25
PROVIDERS: PCP Nurse Practitioner; Visit Provider Nurse Practitioner
DX: R20.2 Paresthesia of skin (principal)
CPT/HCPCS: 82607

== ENCOUNTER 2020-02-17 01:15 | Outpatient (CLI) | payer OTHER, SELFPAY ==
--- NOTE | 2020-02-17 | DI.US_ITS ---
EXAM: US THYROID CLINICAL HISTORY: 2 YEAR FOLLOW UP THYROID NODULES, E04.2 TECHNIQUE: Ultrasound performed using standard protocol. COMPARISON: US THYROID ULTRASOUND from 11/24/2017 FINDINGS: Thyroid ultrasound performed according to the usual protocol. There are right and left thyroid lobe nodules, these were present on prior scan of November 2017. The right lower pole thyroid nodule measures about 10 millimeters in greatest diameter is mixed cysti c and solid and mildly hypoechoic, this is taller than wide. Margins are smooth with no echogenic fo charlene wagoner adds classification TR 4. The left lower pole nodule measures 12 millimeters in greatest diameter, is solid and hypoechoic with wider than tall appearance smooth margins and no echogenic foci. This is also classified as TR 4. IMPRESSION: Two TR 4 classified lesions are noted, these may be followed as there is sizes between 1 and 1.5 cm. These are indeterminate for malignancy but with a low likelihood of malignancy. Follow-up scan tavia mmended in 12 months. DATA REPOSITORY:
== END 2020-02-17 01:35 ==
PROVIDERS: PCP Nurse Practitioner; Visit Provider Nurse Practitioner
DX: E04.2 Nontoxic multinodular goiter (principal)
CPT/HCPCS: 76536

== ENCOUNTER 2020-09-07 21:01 | Outpatient (REF) | payer OTHER, SELFPAY ==
[2020-09-08 13:48] LABS: ESR 12 mm/hr (<or=30)
[2020-09-09 15:05] LABS: ANA Interpretation Negative (Negative)
== END 2020-09-07 21:02 | disposition home or self-care (01) ==
LOC: NCHCN 21:01
PROVIDERS: PCP Nurse Practitioner; Visit Provider Nurse Practitioner
DX: E55.9 Vitamin D deficiency, unspecified (principal); M79.671 Pain in right foot; M79.672 Pain in left foot
CPT/HCPCS: 82306; 85652; 86038

== ENCOUNTER 2020-09-17 15:20 | Outpatient (REF) | payer OTHER, SELFPAY ==
[2020-09-17 15:58] LABS: Abs Immature Grans 0.01 10^3/uL (0.0-0.06); Absolute Basophil Count 0.05 10^3/uL (0.0-0.2); Absolute Lymphocyte Count 2.24 10^3/uL (1.2-3.4); Absolute Monocyte Count 0.36 10^3/uL (0.1-0.8); Absolute Neutrophil Count 2.14 10^3/uL (1.2-6.7); Eosinophils % 5.9; HGB 13.4 g/dL (11.2-15.7); Immature Grans % 0.2; Lymphocytes % 43.9; MCH 29.8 pg (27.0-33.0); MCHC 32.7 % (32.0-36.0); MCV 91.1 fL (80-95); MPV 11.9 fL (8.0-11.0); Monocytes % 7.1; Neutrophils % 41.9; Nucleated RBC 0 %; Platelet Count 216 10^3/uL (130-400); RDW 12.6 % (11.7-14.6); RDW-SD 41.9 fL
[2020-09-17 16:41] LABS: Glucose 88 mg/dL (74-106); Vitamin B12 574 pg/mL (193-986)
[2020-09-18 10:42] LABS: Lyme Ab w Rflx to Lyme Confirm Negative (Negative)
== END 2020-09-17 15:21 | disposition home or self-care (01) ==
LOC: NCHCN 15:20
PROVIDERS: PCP Nurse Practitioner; Visit Provider Nurse Practitioner
DX: M25.59 Pain in other specified joint (principal); R20.2 Paresthesia of skin
CPT/HCPCS: 82947; 82607; 85025; 86618

== ENCOUNTER 2020-11-16 12:07 | Outpatient (REF) | payer OTHER, SELFPAY ==
[2020-11-16 14:28] LABS: ALT 19 U/L (14-59); AST 21 U/L (15-37); Albumin 3.9 g/dL (3.4-5.0); Alkaline Phosphatase 90 U/L (46-116); Anion Gap 11.1 mmol/L (3-11); BUN 19 mg/dL (7-18); Bilirubin, Total 0.6 mg/dL (0.2-1.0); CO2 24.9 mmol/L (21.0-32.0); CREATININE 0.9 mg/dL (0.55-1.02); Calcium 9.1 mg/dL (8.5-10.1); Chloride 109 mmol/L (98-107); Glucose 90 mg/dL (74-106); Potassium 4.6 mmol/L (3.5-5.1); Sodium 145 mmol/L (136-145); TSH (W/Ref FT4) 1.03 uIU/mL (0.36-3.74); Total Protein 6.7 g/dL (6.4-8.2)
[2020-11-17 15:25] LABS: Albumin 65.3 % (55.8-66.1); Total Protein 6.6 g/dL (6.3-8.2)
== END 2020-11-16 12:08 | disposition home or self-care (01) ==
LOC: LBN 12:07
PROVIDERS: PCP Nurse Practitioner; Visit Provider Psychiatry & Neurology Neurology
DX: G62.9 Polyneuropathy, unspecified (principal)
CPT/HCPCS: 80053; 84165; 84443

== ENCOUNTER 2020-12-07 02:15 | Outpatient (CLI) | payer OTHER, SELFPAY ==
[2020-12-07 09:33] LABS: Kit/Specimen SENT
[2020-12-07 09:51] LABS: Absolute Basophil Count 0.03 10^3/uL (0.0-0.2); Absolute Eosinophil Count 0.17 10^3/uL (0.0-0.7); Absolute Lymphocyte Count 1.78 10^3/uL (1.2-3.4); Absolute Monocyte Count 0.41 10^3/uL (0.1-0.8); Basophils % 0.5; Eosinophils % 2.9; HCT 42.5 % (36.0-46.0); HGB 14.1 g/dL (11.2-15.7); Lymphocytes % 30.7; MCH 29.4 pg (27.0-33.0); MCHC 33.2 % (32.0-36.0); MCV 88.5 fL (80-95); Monocytes % 7.1; Neutrophils % 58.8; Nucleated RBC 0 %; Platelet Count 203 10^3/uL (130-400); RDW 12.8 % (11.7-14.6); RDW-SD 41.5 fL; WBC 5.79 10^3/uL (4.4-10.8)
[2020-12-07 09:53] LABS: Hemoglobin A1C 5.3 % (<5.7)
[2020-12-07 10:55] LABS: ALT 17 U/L (14-59); AST 19 U/L (15-37); Albumin 3.8 g/dL (3.4-5.0); Alkaline Phosphatase 92 U/L (46-116); Anion Gap 8.2 mmol/L (3-11); BUN 17 mg/dL (7-18); Bilirubin, Total 0.7 mg/dL (0.2-1.0); CO2 29.8 mmol/L (21.0-32.0); CREATININE 0.8 mg/dL (0.55-1.02); Calcium 9.2 mg/dL (8.5-10.1); Calculated LDL 113 mg/dL (<100); Chloride 106 mmol/L (98-107); Cholesterol 209 mg/dL (<200); Glucose 87 mg/dL (74-106); HDL Cholesterol 84 mg/dL (40-60); Potassium 4.3 mmol/L (3.5-5.1); Sodium 144 mmol/L (136-145); TSH 1.73 uIU/mL (0.36-3.74); Total Protein 6.8 g/dL (6.4-8.2); Triglyceride 61 mg/dL (<150); Vitamin B12 1098 pg/mL (193-986)
[2020-12-07 10:56] LABS: Folate > 20.0 ng/mL (8.6-20.0)
[2020-12-07 11:12] LABS: FREE T4 1.02 ng/dL (0.76-1.46)
[2020-12-10 09:19] LABS: Pyridoxal 5-Phosphate (PLP), P 58 mcg/L (5-50)
== END 2020-12-07 02:16 | disposition home or self-care (01) ==
LOC: LBO 02:15
PROVIDERS: PCP Nurse Practitioner; Visit Provider Naturopath
DX: G60.9 Hereditary and idiopathic neuropathy, unspecified (principal); E78.5 Hyperlipidemia, unspecified; Z13.1 Encounter for screening for diabetes mellitus
CPT/HCPCS: 36415; 80053; 80061; 82607; 82746; 83036; 84207; 84439; 84443; 85025

== ENCOUNTER 2021-05-31 03:40 | Outpatient (CLI) | payer OTHER, SELFPAY ==
[2021-05-31 08:53] LABS: Abs Immature Grans 0.01 10^3/uL (0.0-0.06); Absolute Basophil Count 0.05 10^3/uL (0.0-0.2); Absolute Eosinophil Count 0.16 10^3/uL (0.0-0.7); Absolute Lymphocyte Count 2.29 10^3/uL (1.2-3.4); Basophils % 0.7; Eosinophils % 2.2; HCT 41.6 % (36.0-46.0); HGB 13.8 g/dL (11.2-15.7); Immature Grans % 0.1; Lymphocytes % 30.9; MCH 29.4 pg (27.0-33.0); MCHC 33.2 % (32.0-36.0); MCV 88.5 fL (80-95); MPV 11.4 fL (8.0-11.0); Monocytes % 6.7; Neutrophils % 59.4; Nucleated RBC 0 %; Platelet Count 219 10^3/uL (130-400); RDW 12.5 % (11.7-14.6); WBC 7.41 10^3/uL (4.4-10.8)
[2021-05-31 09:09] LABS: ESR 7 mm/hr (0-30)
[2021-05-31 11:39] LABS: Vitamin D 25 Total 39.6 ng/mL (30-100)
[2021-05-31 11:52] LABS: Iron 178 ug/dL (50-170); Total Iron Binding Capacity 339 ug/dL (250-450); Transferrin Sat 53 % (15-50)
[2021-05-31 12:19] LABS: Albumin 3.8 g/dL (3.4-5.0); Alkaline Phosphatase 99 U/L (46-116); Anion Gap 7.8 mmol/L (3-11); BUN 15 mg/dL (7-18); Bilirubin, Total 0.7 mg/dL (0.2-1.0); CO2 29.2 mmol/L (21.0-32.0); CREATININE 0.8 mg/dL (0.55-1.02); Chloride 109 mmol/L (98-107); Glucose 95 mg/dL (74-106); Potassium 4.1 mmol/L (3.5-5.1); Sodium 146 mmol/L (136-145); Total Protein 6.6 g/dL (6.4-8.2)
[2021-05-31 12:20] LABS: ALT 17 U/L (14-59); AST 19 U/L (15-37); Creatine Kinase 117 U/L (26-192)
[2021-05-31 14:47] LABS: FREE T4 0.96 ng/dL (0.76-1.46); Magnesium 2.1 mg/dL (1.8-2.4); TSH 1.68 uIU/mL (0.36-3.74)
[2021-05-31 15:13] LABS: Ferritin 70 ng/mL (8-252); Folate > 20.0 ng/mL (8.6-20.0); Vitamin B12 529 pg/mL (193-986)
[2021-05-31 16:42] LABS: Rheumatoid Factor <8.6 IU/mL (<12.0)
[2021-05-31 16:58] LABS: T3,Free 3.5 pg/mL (2.8-5.3)
[2021-06-01 11:10] LABS: Syphilis Serology (RPR) Negative (Negative)
[2021-06-01 11:42] LABS: Hepatitis C Ab w Rflx HCV PCR Negative (Negative)
[2021-06-01 14:32] LABS: ANA Interpretation Negative (Negative)
== END 2021-05-31 03:41 | disposition home or self-care (01) ==
LOC: LBO 03:40
PROVIDERS: Physical Medicine & Rehabilitation; PCP Nurse Practitioner; Visit Provider Nurse Practitioner
DX: M79.10 Myalgia, unspecified site (principal); R53.83 Other fatigue; E55.9 Vitamin D deficiency, unspecified; G47.9 Sleep disorder, unspecified; M89.9 Disorder of bone, unspecified
CPT/HCPCS: 36415; 80053; 82306; 82550; 85652; 86803; 82607; 82728; 82746; 83540; 83550; 83735; 84439; 84443; 84481; 85025; 86038; 86431; 86592

== ENCOUNTER 2022-02-08 12:05 | Outpatient (CLI) | payer OTHER, SELFPAY ==
[2022-02-14 21:29] LABS: Babesia divergens/MO-1 Negative (Negative); Babesia duncani Negative (Negative); Babesia microti Negative (Negative)
== END 2022-02-08 12:06 | disposition home or self-care (01) ==
LOC: LBO 12:06
PROVIDERS: Naturopath; PCP Nurse Practitioner; Visit Provider Nurse Practitioner
DX: B60.01 Babesiosis due to Babesia microti (principal)
CPT/HCPCS: 87798

== ENCOUNTER 2022-02-16 17:05 | Outpatient (REF) | payer OTHER, SELFPAY ==
[2022-02-18 11:25] LABS: COVID-19 RT-PCR UVMMC Result Negative (Negative)
== END 2022-02-16 17:06 | disposition home or self-care (01) ==
LOC: LBN 17:05
PROVIDERS: PCP Nurse Practitioner; Visit Provider Physician Assistant Medical
DX: Z20.822 Contact with and (suspected) exposure to COVID-19 (principal)
CPT/HCPCS: U0003

== ENCOUNTER → 2022-04-28 01:26 | Outpatient (CLI) | payer OTHER, SELFPAY ==
--- NOTE | 2022-04-28 07:45 | DI.MRI_ITS ---
Exam(s) MR BRAIN WO EXAM: MR BRAIN WO CLINICAL HISTORY: ?MS R20.2 PARESTHESIA OF SKIN TECHNIQUE: Multiplanar multisequence MRI of the brain was performed. COMPARISON: No exams were available for comparison FINDINGS: VENTRICLES AND EXTRA AXIAL SPACES: Normal in size and morphology for the patient's age. MIDLINE SHIFT: None. CEREBRAL PARENCHYMA: No focus of restricted diffusion to suggest acute infarct. No space-occupying le timo identified. HEMORRHAGE: There is a focus of hypointense round signal in the posterior left parietal lobe seen on the gradient images which may represent prior hemorrhage. BRAINSTEM/CEREBELLUM: Normal. CALVARIUM: Normal. VISUALIZED PARANASAL SINUSES/MASTOIDS:Clear. [place] OF PANCHAL: Normal flow void. PITUITARY GLAND: Unremarkable. OTHER FINDINGS: None. IMPRESSION: 1. No hyperintense white matter lesions are identified. No evidence of an acute infarct. 2. Single Hypointense signal on the gradient images in the left parietal lobe. This can be seen from remote hemorrhage such as from trauma or vascular malformation. Postcontrast MRI may be considered to assess for presence of a vascular malformation. DATA REPOSITORY:
--- NOTE | 2022-04-28 07:45 | DI.MRI_ITS ---
Exam(s) MR CERVICAL SPINE WO EXAM: MR CERVICAL SPINE WO CLINICAL HISTORY: ? MS R20.2 PARESTHESIA OF SKIN TECHNIQUE: Multiplanar multisequence MRI of the cervical spine was performed without intravenous con trast. COMPARISON: No exams were available for comparison FINDINGS: BONES: Vertebral body heights are maintained. Moderate cervical spondylosis. Alignment is normal. Home ne marrow signal intensity is within normal limits. CERVICAL CORD: Craniovertebral junction is unremarkable. The cervical cord is normal size and signal intensity. No cervical spinal cord lesions. SOFT TISSUES: Unremarkable. C2-3: No disc herniation or bulge is identified. No significant central spinal canal or neural forami nal stenosis. C3-4: No disc herniation or bulge is identified. No significant central spinal canal stenosis is seen . There is left uncovertebral joint hypertrophy causing moderate left neural foraminal stenosis. No significant right neural foraminal stenosis is present. C4-5: There is mild prominence of the osteophyte disc complex causing mild narrowing of the central s ronny canal. Uncovertebral joint hypertrophy is present bilaterally. Moderately severe bilateral ne ural foraminal stenosis is present. C5-6: There is prominence of the osteophyte disc complex. Mild narrowing of the central spinal canal is seen. There is bilateral uncovertebral joint hypertrophy causing [id number] bilateral neur al foraminal stenosis. C6-7: There is mild prominence of the osteophyte disc complex. No significant central spinal canal s tenosis is seen. Degenerative changes of the left uncovertebral joint causes mild narrowing of the l eft neural foramen. No significant right neural foraminal stenosis is present. C7-T1: There is a small central disc herniation. No significant central spinal canal or neural carin inal stenosis IMPRESSION: Multilevel degenerative changes in the cervical spine resulting in central spinal canal and neural fo raminal stenosis. Please see the above discussion for complete details. DATA REPOSITORY:
== END ==
PROVIDERS: PCP Nurse Practitioner Family; Visit Provider Psychiatry & Neurology Neurology
DX: R20.2 Paresthesia of skin (principal); M47.812 Spondylosis without myelopathy or radiculopathy, cervical region
CPT/HCPCS: 70551; 72141

== ENCOUNTER → 2023-03-15 01:00 | Outpatient (CLI) | payer BC, SELFPAY ==
--- NOTE | 2023-03-15 | DI.MAMMO_ITS ---
Exam(s) MAMMO SCREENING EXAM: MAMMO SCREENING CLINICAL HISTORY: SCREENING, Z12.39 TECHNIQUE: Mammograms were interpreted according to the usual protocol including computer analysis w [employer] CAD system, tomosynthesis and C-view imaging. COMPARISON: 2009 through 2021 from [facility]. FINDINGS: The breasts are composed of heterogeneously dense fibroglandular densities, Breast Density category C . No suspicious masses or suspicious microcalcifications are seen. No skin thickening or abnormal axillary lymph nodes are seen. There has been no significant change from prior exams. IMPRESSION: BI-RADS Category 1, Negative mammogram. Yearly screening mammography is recommended. Breast Density Category C, heterogeneously Dense. The mammogram demonstrates the patient's breast tissue is dense. Dense breast tissue is very common a nd is not abnormal but dense breast tissue can make it harder to find cancer on a mammogram. Also, de nse breast tissue may increase breast cancer risk. This information about the result of the mammogram report was provided to the patient to raise their awareness. Use this report when you speak with the patient about their risks for breast cancer, which includes their family history. At that time, you may recommend additional screening tests (Ultrasound or MRI) as they might be useful based on their r isk. A negative radiographic report should not delay biopsy if a dominant or clinically suspicious mass is present. Up to ten percent of cancers are not identified on mammography. A negative report may reinforce clinical impression. Adenosis and dense breasts may obscure an underlying neoplasm. False positive reports average 6 to 10%.
== END ==
PROVIDERS: PCP Nurse Practitioner Family; Visit Provider Nurse Practitioner Family
DX: Z12.31 Encounter for screening mammogram for malignant neoplasm of breast (principal)
CPT/HCPCS: 77063; 77067

== ENCOUNTER 2023-09-13 15:12 | Outpatient (REF) | payer BC, SELFPAY ==
[2023-09-13 19:20] LABS: Abs Immature Grans 0.01 10^3/uL (0.0-0.06); Absolute Basophil Count 0.05 10^3/uL (0.0-0.2); Absolute Eosinophil Count 0.21 10^3/uL (0.0-0.7); Absolute Lymphocyte Count 2.55 10^3/uL (1.2-3.4); Absolute Monocyte Count 0.34 10^3/uL (0.1-0.8); Absolute Neutrophil Count 2.85 10^3/uL (1.2-6.7); Basophils % 0.8; Eosinophils % 3.5; HCT 40.1 % (36.0-46.0); HGB 13.3 g/dL (11.2-15.7); Immature Grans % 0.2; Lymphocytes % 42.4; MCH 29.2 pg (27.0-33.0); MCHC 33.2 % (32.0-36.0); MCV 88 fL (80-95); Monocytes % 5.7; Neutrophils % 47.4; Platelet Count 217 10^3/uL (130-400); RBC 4.56 10^6/uL (3.93-5.22); RDW 12.5 % (11.7-14.6); RDW-SD 40.4 fL; WBC 6.01 10^3/uL (4.4-10.8)
[2023-09-13 19:44] LABS: ALT 14 U/L (14-59); AST 18 U/L (15-37); Albumin 3.6 g/dL (3.4-5.0); Alkaline Phosphatase 70 U/L (46-116); Anion Gap 9.3 mmol/L (3-11); BUN 16 mg/dL (7-18); Bilirubin, Total 0.5 mg/dL (0.2-1.0); CO2 26.7 mmol/L (21.0-32.0); CREATININE 0.8 mg/dL (0.55-1.02); Calcium 9.2 mg/dL (8.5-10.1); Chloride 105 mmol/L (98-107); Estimated GFR 84.82 (mL/min/1.73m2); FREE T4 0.95 ng/dL (0.76-1.46); Glucose 103 mg/dL (74-106); Potassium 4.2 mmol/L (3.5-5.1); Sodium 141 mmol/L (136-145); TSH 1.25 uIU/Ml (0.36-3.74); Total Protein 6.9 g/dL (6.4-8.2)
== END 2023-09-13 15:13 | disposition home or self-care (01) ==
LOC: NCHCN 15:12
PROVIDERS: PCP Nurse Practitioner Family; Referring Provider Nurse Practitioner Family; Visit Provider Nurse Practitioner Family
DX: R10.13 Epigastric pain (principal); Z86.39 Personal history of other endocrine, nutritional and metabolic disease
CPT/HCPCS: 80053; 84439; 84443; 85025

== ENCOUNTER → 2024-01-22 02:33 | Outpatient (CLI) | payer BC, SELFPAY ==
--- NOTE | 2024-01-22 13:45 | DI.RAD_ITS ---
Exam(s) XR CHEST 2V PA LATERAL EXAM: XR CHEST 2V PA LATERAL CLINICAL HISTORY: CHEST WALL PAIN,R07.89 TECHNIQUE: 2D digital imaging was performed. Two views. COMPARISON: No exams were available for comparison FINDINGS: HEART: Normal size. Aorta: Not dilated. PULMONARY VASCULATURE: Normal. MEDIASTINUM: Unremarkable. LUNGS: Clear. PLEURAL SPACE: No pleural effusion or pneumothorax. BONE:Unremarkable for age. SOFT TISSUES: Unremarkable. IMPRESSION: No acute abnormality. DATA REPOSITORY: RADIATION DOSE DELIVERED:
== END ==
PROVIDERS: Visit Provider Nurse Practitioner Family
DX: R07.89 Other chest pain (principal)
CPT/HCPCS: 71046

== ENCOUNTER 2024-09-12 01:54 | Outpatient (CLI) | payer BC, SELFPAY ==
--- NOTE | 2024-09-12 | DI.MAMMO_ITS ---
Exam(s) MAMMO SCREENING EXAM: MAMMO SCREENING CLINICAL HISTORY: Screening, Z12.31 TECHNIQUE: Mammograms were interpreted according to the usual protocol including computer analysis w [employer] CAD system, tomosynthesis and C-view imaging. COMPARISON: 2019 through 2022 FINDINGS: The breasts are composed of heterogeneously dense fibroglandular densities, Breast Density category C . No suspicious masses or suspicious microcalcifications are seen. No skin thickening or abnormal axillary lymph nodes are seen. There has been no significant change from prior exams. IMPRESSION: BI-RADS Category 1, Negative mammogram. Yearly screening mammography is recommended. Breast Density Category C, heterogeneously Dense. The mammogram demonstrates the patient's breast tissue is dense. Dense breast tissue is very common a nd is not abnormal but dense breast tissue can make it harder to find cancer on a mammogram. Also, de nse breast tissue may increase breast cancer risk. This information about the result of the mammogram report was provided to the patient to raise their awareness. Use this report when you speak with the patient about their risks for breast cancer, which includes their family history. At that time, you may recommend additional screening tests (Ultrasound or MRI) as they might be useful based on their r isk. A negative radiographic report should not delay biopsy if a dominant or clinically suspicious mass is present. Up to ten percent of cancers are not identified on mammography. A negative report may reinforce clinical impression. Adenosis and dense breasts may obscure an underlying neoplasm. False positive reports average 6 to 10%.
--- NOTE | 2024-09-12 | DI.DEXA_ITS ---
Exam(s) XR DEXA BONE DENSITY W/WO TOBY EXAM: XR DEXA BONE DENSITY W/WO TOBY CLINICAL HISTORY: Asymptomatic menopausal status, Z78.0; would like to get screening early TECHNIQUE: COMPARISON: No exams were available for comparison FINDINGS: Lateral Spine Image: Unremarkable. No compression deformities identified. Left hip: Total T-Score: -0.7 Total Z-Score: 0.3 T- and Z-scores: There is no evidence of osteoporosis. Note is made of osteopenia in the femoral nec k with a T-score of -1.7. Lumbar Spine: Total T-Score: -1.2 Total Z-Score: 0.2 T- and Z-scores: Findings are consistent with osteopenia. There is no evidence of osteoporosis. IMPRESSION: No evidence of osteoporosis.
== END 2024-09-12 02:14 ==
LOC: DI 01:54
PROVIDERS: PCP Nurse Practitioner Family; Visit Provider Nurse Practitioner Family
DX: Z12.31 Encounter for screening mammogram for malignant neoplasm of breast (principal); Z78.0 Asymptomatic menopausal state
CPT/HCPCS: 77063; 77067; 77080

== ENCOUNTER 2024-10-08 02:23 | Outpatient (CLI) | payer BC, SELFPAY ==
[2024-10-08 09:41] LABS: Kit/Specimen SENT
== END 2024-10-08 02:24 | disposition home or self-care (01) ==
LOC: LBO 02:23
PROVIDERS: PCP Nurse Practitioner Family; Visit Provider Naturopath
DX: Z01.812 Encounter for preprocedural laboratory examination (principal)
CPT/HCPCS: 36415

== ENCOUNTER 2025-01-31 09:02 | Day surgery (SDC) | payer BC, SELFPAY ==
--- NOTE | 2025-01-30 17:09 | W.PM.DSUDISC ---
Date of service: 01/31/25 Discharge Plan Disposition Patient Disposition: Home Condition: Good Discharge Details Reason For Visit: screening colonoscopy Attending Provider: Ananda Espino Primary Care Provider: Turner Kelly Home Meds and New Rx's Prescriptions: Continued vitamin B complex Tablet 1 tab PO DAILY cholecalciferol (vitamin D3) 50 mcg (2,000 unit) tablet 50 mcg PO DAILY magnesium 30 mg tablet See Rx Instructions PO .COMPLEX Rx Instructions: orally as directed; CBD gummies PO HS gabapentin 400 mg capsule 600 mg PO HS progesterone micronized 100 mg capsule 100 mg PO HS Rx Instructions: off 7 days; repeat cycle colesevelam [WelChol] 625 mg tablet 625 mg PO BID naltrexone 1.5 mg capsule 4.5 mg PO DAILY omega 6-jlt-swr-fish oil [Fish Oil] 60-90-500 mg capsule 1 cap PO DAILY estradiol [Vivelle-Dot] 0.05 mg/24 hr patch semiweekly 1 patch transdermal ONCE acetylcysteine [NAC] 600 mg capsule 600 mg PO DAILY cyclobenzaprine 10 mg Tablet 5 - 10 mg PO HS PRN Discontinued bisacodyl [Dulcolax (bisacodyl)] 5 mg tablet,delayed release (DR/EC) 5 mg PO ONCE Qty: 4 0RF Rx Instructions: Take per colonoscopy instructions provided by ordering providers office polyethylene glycol 3350 17 gram/dose powder 17 g PO ONCE Qty: 238 0RF Rx Instructions: Take per colonoscopy instructions provided by ordering providers office Discharge Instructions Instructions: High-fiber diet Additional Instructions: Nelly, is very nice meeting you today, and I hope you are comfortable through the procedure. Things went very smoothly. Your prep was outstanding, negative everything fine. I saw no signs of any tumors, polyps, or anything particularly worrisome. You do have some secondary signs of hemorrhoids, although I would consider your hemorrhoid burden at this time to be quite minimal. There is really no suitable target for internal hemorrhoid banding, so I did not perform that today as it would not provide any meaningful benefit. I suspect the prolapsing sensation that you are experiencing is secondary to small anterior anal pile, were previously thrombosed external hemorrhoid tissue. As we discussed beforehand, these can be surgically excised and closed, but I think maximizing nonoperative treatment is probably the most comfortable strategy at this point. Generally, the 3 best strategies for healthy toileting regard hydration, positioning, and fiber. Making sure that you are drinking about 2 to 3 L of regular water per day is an important strategy as the main job of the large intestine is to reabsorb free water at the end of the GI tract. Often times, patients overlooked this simple strategy to start. With regards to positioning, the most useful strategy seems to be elevation of the knees above the level of the hips when defecating. There is a commercially available device called the squatty potty that wraps around the bottom portion of the toilet to help with this, but the same effect can be achieved with any type of simple stool that elevates your knees. Minimizing time on the toilet and avoiding straining is much as possible is also an important component. Finally, as we discussed beforehand, the general recommendation for dietary fiber at this point is about 20 to 30 g/day. I would encourage you to look at some basic nutrition labels over the next week or so to get a sense of how much fiber you are actually eating each day. Most people are somewhere between 10 and 15 g. As we discussed, supplementing your diet with psyllium is probably the easiest way to resolve this issue. See how you feel over the next few weeks to months. If your hemorrhoids are still bothering you, more than happy to talk about surgical excision if you are interested. Otherwise, with a negative screening colonoscopy today you will be good for 10 years. 1. If tolerated, consume a soft, low fiber diet for 1-2 days. 2. Do not drive, drink alcohol, operate machinery, make critical decisions, or do activities that require coordination or balance for 24 hours. 3. Because air was put into your colon during the procedure, expelling air from your rectum (passing gas or farting) is normal. 4. You may not have a bowel movement for 1-3 days because of the colonoscopy prep. This is normal. 5. Go directly to the emergency room if you notice any of the following: Develop chills (warm to touch), or if you have a thermometer and your temperature is above 101 Difficulty breathing or difficultly swallowing Persistent vomiting Severe abdominal pain, other than gas cramps Severe chest pain Black, tarry stools Any bleeding ? exceeding one tablespoon 6. Call your physician if the site where your intravenous was started becomes red, swollen, painful, and warm to touch. 7. Your physician has reviewed your pre-procedure medications. Please continue to take those medications as previously ordered. You will be given specific information/education regarding any changes to your medications before leaving. Activity:: Activity as Tolerated Diet:: As Tolerated Discharge Orders Discharge Orders: Discharge Order (Routine); Ordered 01/30/25 Ordered By: Ananda Espino DS: Diagnosis Discharge Diagnosis (1) Encounter for screening colonoscopy: Status: Acute Asessment and Plan: Negative screening colonoscopy; 10-year interval
--- NOTE | 2025-01-30 17:11 | COLE_ITS ---
Date of service: 01/31/25 Time of Service: 11:48 Colonoscopy Report Date of procedure: 01/31/25 Pre-op diagnosis general: screening colonoscopy Post-op diagnosis procedure note: other (Negative screening colonoscopy) Procedure: colonoscopy Surgeon: Ananda Espino Anesthesia Type: General:No Airway Estimated blood loss (mL): 3 Pathology: none sent Complications: None Disposition: same day Indications: Yanni is a 59 year old woman who needs a screening colonoscopy Prep: Miralax/Dulcolax Procedure Start Time: 11:03 Procedure End Time: 11:17 Retraction Time: 7 Findings: Negative screening colonoscopy Procedure Description: After the induction of monitored anesthetic care, and with the patient in left lateral decubitus position, I began by performing an external anorectal exam.? There is an anterior anal yanelis.? I do not see any fissures.? Next, I performed a digital rectal exam.? I did not appreciate any abnormal findings.? Next, I advanced a colonoscope into the rectal vault.? I performed retroflexion.? There is minimal internal hemorrhoid component. Using insufflation, I then advanced the colonoscope beyond the rectal folds and into the sigmoid colon before advancing towards the cecum.? The quality of the prep was excellent.? The scope was noted to be in the cecum by identification of the ileocecal valve and appendiceal orifice.? I then began withdrawing the colonoscope using repeated irrigation as necessary for full evaluation of the colonic mucosa. ?Once the scope was withdrawn to the level of the rectum, great care was taken to examine portions of the rectal folds.? Finally, the scope was withdrawn. Next I performed fiberoptic lighted anoscopy. Circumferential examination of the anal column was performed. Again seen is a small anterior anal pile. There are no suitable targets for internal hemorrhoid banding of the left lateral, or right anterior posterior columns. Yanni was awaken from anesthesia and brought to the same-day surgery recovery unit as the anesthetic wore off. ?The findings and in structions were shared with the patient prior to discharge. [place] Bowel Prep [place] Bowel Prep Right Colon: 3 Left Colon: 3 Transverse Colon: 3 Total Score: 9
[2025-01-31 09:26] VITALS: BP 119/63; PULSE 40; RESP 16; TEMP 36.2; O2SAT 99
--- NOTE | 2025-01-31 10:44 | W.ANESPRE ---
General Info Date of Service Date Performed: 01/31/25 Height: 5 ft 3.5 in Weight: 65.1 kg Body Mass Index (BMI): 25.0 Surgical Procedure: Operation Date: 01/31/25 10:40 Proposed Procedure Side Surgeon p Colonoscopy Ananda Espino MD s Possible Hemorrhoid Banding Ananda Espino MD Meds Allergies and Home Medications Allergies Allergy/AdvReac Type Severity Reaction Status Date / Time egg Allergy Mild Other (See Verified 01/31/25 09:29 Comment) Crescent (Crescent Allergy Unknown Other (See Verified 01/31/25 09:29 *RETIRED-02/06/15) Comment) mold Allergy Unknown Other (See Verified 01/31/25 09:29 Comment) codeine AdvReac Intermediate Other (See Verified 01/31/25 09:29 Comment) lactose AdvReac Intermediate Diarrhea Verified 01/31/25 09:29 DUST Allergy Unknown Other (See Uncoded 01/31/25 09:29 Comment) G.DOMESTICUS DUST MITE Allergy Unknown Other (See Uncoded 01/31/25 09:29 Comment) Home Medication ?Medication ?Instructions ?Recorded cyclobenzaprine 10 mg tablet 5 - 10 mg PO HS PRN 06/19/19 cholecalciferol (vitamin D3) 50 50 mcg PO DAILY 03/17/22 mcg (2,000 unit) tablet magnesium 30 mg tablet See Rx Instructions PO .COMPLEX 03/17/22 vitamin B complex 1 tab PO DAILY 03/17/22 omega 7-dgd-pfs-fish oil 60 mg-90 1 cap PO DAILY 02/07/23 mg-500 mg capsule (Fish Oil) CBD gummies PO HS 11/14/23 acetylcysteine 600 mg capsule (NAC) 600 mg PO DAILY 11/20/24 colesevelam 625 mg tablet (WelChol) 625 mg PO BID 12/12/24 gabapentin 400 mg capsule 600 mg PO HS 12/12/24 progesterone micronized 100 mg 100 mg PO HS 12/12/24 capsule estradiol 0.05 mg/24 hr semiweekly 1 patch transdermal ONCE 01/23/25 transdermal patch (Vivelle-Dot) naltrexone 1.5 mg capsule 4.5 mg PO DAILY 01/23/25 Current Visit Medications: Current Medications Generic Name Dose Route Start Last Admin Trade Name Freq PRN Reason Stop Dose Admin Ringer's Solution 1,000 mls @ 80 mls/hr 01/31/25 06:00 IV 01/31/25 23:59 INFUSION ALONA IV Miscellaneous Supplies 1 each 01/31/25 06:00 Iv Access IV 01/31/25 23:59 DIRECTED ALONA Ondansetron HCl 4 mg 01/30/25 17:12 Ondansetron 4 Mg/2 Ml Vial IVP 03/01/25 17:11 Q4H PRN PRN Nausea / Vomiting Sodium Chloride 0 ml 01/31/25 06:00 Normal Saline Flush 10 Ml Syr IV 01/31/25 23:59 PRN PRN Sodium Chloride 0 ml 01/31/25 06:00 Normal Saline 10 Ml Vial IJ 01/31/25 23:59 DIRECTED PRN Sterile Water 0 ml 01/31/25 06:00 Water,Injection,Sterile 10 Ml Vial IJ 01/31/25 23:59 DIRECTED PRN PFSH Active Problems Active Problems: Problem Status Onset Code Encounter for screening colonoscopy Acute Z12.11 Right arm pain Acute M79.601 Menopausal disorder Acute N95.9 Cerebral cavernoma Acute Q28.3 Paresthesia Acute R20.2 Peripheral neuropathy Acute G62.9 Carpal tunnel syndrome of right wrist Acute G56.01 Appendicitis Acute K37 Dyspareunia Acute Scoliosis Chronic M41.9 Mitral valve prolapse Chronic I34.1 Constipation Chronic K59.00 Chronic pain Chronic G89.29 Anemia Acute D64.9 Fibroid, uterine Acute D25.9 Medical History Medical History Constipation Lumbago RECURRENT (GIVES OUT), FX COCCYX, XRAY 10/19 NEGATIVE XRAY 10/19 MILD LEFT CONVEX LEFT SCOLIOSIS Breast lump 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 Hysterectomy - LAVH S/P foot surgery, left bursa removed History of appendectomy (~06/2019) Tonsillectomy and adenoidectomy Thyroid (~1984) TUMOR REMOVED Hysterectomy, Laproscopic LAVH with conservation of ovaries. 10cm fibroid. benign path. Endometrial Biopsy (10/01/13) Colonoscopy - MAC 06/23/14 Breast, Lumpectomy RIGHT MASS REMOVED Tobacco Smoking/Tobacco Use Status: Never Passive smoking exposure: Yes Alcohol Alcohol Intake: current Alcohol intake frequency: a few times a week Substance Use Substance use: Never Substance use type: does not use Vital Signs and Lab Results Vital Signs Most Recent Vital Signs in EMR: Most Recent Vital Signs Temp Pulse Resp BP Pulse Ox 36.2 C L 40 L 16 119/63 99 01/31/25 09:26 01/31/25 09:26 01/31/25 09:26 01/31/25 09:01/31/25 09:26 Anesthesia Assessment and Plan Anesthesia History Personal History: No History of Anesthesia Complications Family History: No Family History of Anesthesia Complications Exercise Tolerance Exercise Tolerance: Metabolic Equivalents>4 Pertinent Negatives Pertinent Negatives: No Symptoms of GERD Cardiac & Pulmonary Exam Cardiac Exam: Normal S1/S2 Heart Sounds Pulmonary Exam: Clear Bilateral Breath Sounds Implantable Cardiac Device Does patient have a Pacemaker or an ICD?: No Airway Exam Known Difficult Airway: No Mallampati Class: 2 Mouth Opening: Normal (> 3cm) Thyromental Distance: Greater than 3 cm Neck Range of Motion: Full ROM Neck Circumference: Normal Teeth Condition: Normal Dentition ASA Classification ASA Score: ASA 2 Emergency Case?: No NPO Status NPO Status: NPO Clears >2 hours, Solids >8 hours Anesthesia Plan Resuscitation Status: Full Code Anesthesia Technique: General Anesthesia Airway Planned: Natural Airway Monitors Used: Standard Monitors
[2025-01-31 10:45] VITALS: BMI 25.0
[2025-01-31] MEDS: Lactated Ringers 1,000 ML 80 ML IV (10:47)
[2025-01-31 11:24] VITALS: BP 102/75; PULSE 53; RESP 16; TEMP 36.5; O2SAT 98
--- NOTE | 2025-01-31 11:28 | W.ANESPOSTOP ---
Postoperative Evaluation Date, Time and Location Date Performed: 01/31/25 Time Performed: 11:28 Patient Location: Day Surgery Unit Vital Signs Most Recent Imported Vital Signs: Most Recent Vital Signs Temp Pulse Resp BP Pulse Ox 36.2 C L 40 L 16 119/63 99 01/31/25 09:26 01/31/25 09:26 01/31/25 09:26 01/31/25 09:26 01/31/25 09:26 Pain Score Most Recent Pain Score: Most Recent Pain Score Pain Level 0 01/31/25 09:26 Assessment Mental Status: Awake (Alert & Oriented to Patient Baseline) Airway and Respiratory Function: Patent airway with normal (patient baseline) respiratory exam Cardiovascular Function: Hemodynamically Stable Hydration Status: Adequately Hydrated Nausea & Vomiting: No Nausea or Vomiting Pain: Pt. Denies Any Pain Peripheral Nerve Block: Patient did not receive a nerve block
[2025-01-31 11:47] VITALS: BP 106/76; PULSE 44; RESP 15; TEMP 36.4; O2SAT 99
== END 2025-01-31 12:24 | disposition home or self-care (01) ==
LOC: SUR 09:02
PROVIDERS: PCP Student in an Organized Health Care Education/Training Program; Visit Provider Surgery
PROC: 0DJD8ZZ Inspection of Lower Intestinal Tract, Via Natural or Artificial Opening Endoscopic (ICD-10-PCS; CPT 45378; principal; 2025-01-31 10:30)
DX: Z12.11 Encounter for screening for malignant neoplasm of colon (principal)
CPT/HCPCS: 45378; 46600; J2704

== ENCOUNTER 2025-03-12 12:49 | Outpatient (RCR) | payer BC, SELFPAY | END 2025-03-16 23:59 | disposition home or self-care (01) | LOC: CARDOPNVT 12:49 | PROVIDERS: PCP Student in an Organized Health Care Education/Training Program; Visit Provider Internal Medicine Cardiovascular Disease | DX: R00.2 Palpitations (principal) | CPT/HCPCS: 93225 ==

== ENCOUNTER 2025-03-17 09:08 | Outpatient (RCR) | payer BC, SELFPAY ==
--- NOTE | 2025-03-18 12:07 | W.HOLTRPT ---
Date of service: 03/18/25 Time of Service: 12:07 Holter Monitor Report Referring Provider:: Turner Kelly Indications:: Palpitations Holter Monitor Note: This is a 48-hour Holter monitor. Rhythm throughout was sinus with an average heart rate of 60. Minimum was 35, maximum 109 There were very rare isolated atrial and ventricular ectopic beats There was no atrial fibrillation, no high-grade AV block, no pauses greater than 3 seconds No symptoms were reported
== END 2025-04-15 23:59 | disposition home or self-care (01) ==
LOC: CARDOPNVT 09:08
PROVIDERS: PCP Student in an Organized Health Care Education/Training Program; Visit Provider Internal Medicine Cardiovascular Disease
DX: R00.2 Palpitations (principal)
CPT/HCPCS: 93226

== ENCOUNTER 2025-03-21 05:27 | Outpatient (CLI) | payer BC, SELFPAY ==
--- NOTE | 2025-03-21 07:30 | DI.US_ITS ---
APPROVED REPORT EXAM: Comprehensive 2D, Doppler, and color-flow Echocardiogram Patient Location: Out-Patient Sales Representative [employer]: Jose Roberto Mills RDCS (AE) Indications: Murmur Conclusion Normal left ventricular wall thickness and chamber size. Ejection fraction is 60%. Wall motion is normal Normal right ventricular size and function Normal left atrial size. Mildly dilated right atrium There are no structural valvular abnormalities Mild tricuspid regurgitation. Estimated right ventricular systolic pressure is 28 mmHg Wall motion Left Ventricle The left ventricle is normal size. Left ventricular systolic function is normal. The left ventricular ejection fraction is within the normal range. There is normal left ventricular wall thickness. There is normal LV segmental wall motion. There is no ventricular septal defect visualized. LVEF is 60%. Right Ventricle The right ventricle is normal size. The right ventricular systolic function is normal. Atria The left atrium size is normal. Right atrium is mildly dilated. The interatrial septum is intact with no evidence for an atrial septal defect. Aortic Valve The aortic valve is normal in structure. Aortic valve is trileaflet. There is no aortic valvular stenosis. No aortic regurgitation is present. Mitral Valve The mitral valve is normal in structure. No evidence of mitral valve stenosis. There is no mitral valve regurgitation noted. Tricuspid Valve The tricuspid valve is normal in structure. There is no tricuspid valve stenosis. Mild tricuspid regurgitation. The RVSP is 28 mmHg. Pulmonic Valve The pulmonary valve is normal in structure. There is no pulmonic valvular stenosis. There is no pulmonic valvular regurgitation. Great Vessels The aortic root is normal in size. The ascending aorta is normal in size. Aortic arch is normal in caliber. IVC is normal in size and collapses >50% with inspiration. Pericardium There is no pericardial effusion. 2D Dimensions IVSD d PLAX 0.85 cm F: 0.6-1.0 Ao Root d 3.29 cm F: 2.7 - 3.3 LVPW d PLAX 0.87 cm F: 0.6 - 1.0 Ao Asc Diam d 3.17 cm F: 2.3 - 3.1 LVID d PLAX 5.10 cm F: 3.8 - 5.2 LVDs 3.47 cm F: 2.2 - 3.5 LV EF Teichholz 59.7 % FS 31.93 % LV EDV (Teich) 123.5 mL LV ESV (Teich) 49.8 mL Stroke Vol Index (Teich) 43.65 M-Mode TAPSE 2.42 cm (M/F) >1.7 Auto EF LV EDV A4C 95.4 mL LV EDV A2C 100.0 mL LV EDV BP 99.3 mL LV ESV A4C 36.3 mL LV ESV A2C 36.5 mL LV ESV BP 36.6 mL LVEF(%) A4C 61.9 % LVEF(%) A2C 63.5 % LVEF(%) BP 63.2 % LV SV A4C 59.0 ml LV SV A2C 63.6 ml LV SV BP 62.7 ml LV CO A4C 3.1 L/min LV CO A2C 3.2 L/min LV CO BP 3.2 L/min HR A4C 52.40 BPM HR A2C 50.64 BPM LV EDV Index (BP) LA Volume LA Length A4C 4.7 cm LA Length A2C 4.4 cm LA Area A4C s 11.75 cm2 LA Area A2C s 10.82 cm2 LA Vol A4C A-L 24.90 mL LA Vol A2C A-L 22.85 mL LA Vol Biplane A-L 24.8 mL LA Vol/BSA A4C A-L LA Vol/BSA A2C A-L LA Vol/BSA BP A-L 14.7 mL/m2 LA Vol A4C MOD 22.8 mL LA Vol A2C MOD 21.7 mL LA Vol BP MOD 23.1 mL RA Volume RA Area A4C 14.3 cm2 RA ESV A4C (A-L) 39.6mL RA Vol/BSA A4C A-L RA Length A4C 4.4 cm RA ESV A4C (MOD) 35.7mL LV Diastology MV E' medial 0.077 (>0.07 m/s) MV E Vmax 1.00 (0.4-1.3 m/s) MV E/E' MED 13.06 (<14) MV A Vmax 0.60 (0.4-1.3 m/s) MV E' lateral 0.087 (>0.1 m/s) E/A Ratio 1.7 MV E/E' LAT 11.46 (<14) MV E' Average 0.082 m/s MV E/E'(average) 12.21 Aortic Valve AoV Vmax 1.28 m/s LVOT Vmax 1.11 m/s AoV Peak Grad 6.6 mmHg LVOT Peak Grad 5.0 mmHg AoV Area (Vmax) 3.33 cm2 LVOT VTI 0.255 m AoV VTI 0.289 m LVOT Mean Grad 2.5 mmHg AoV Mean Jong. 0.82 m/s LVOT SV 97.95 mL AoV Mean Grad 3.2 mmHg LVOT Diam s 2.20 cm AoV Area (VTI) 3.39 cm2 AV Regurg Peak Gr. 6.57 mmHg Velocity Ratio 0.87 Mitral Valve MV DT 183 (160-240 msec) Pulmonary Valve PV Vmax 0.70 (0.5-1.5 m/s) RVOT Vmax 0.56 m/s PV Peak Grad 1.9 mmHg RVOT Peak Gr. 1.2 mmHg PV Mean Jong 0.49 m/s RVOT VTI 0.134 m PV Mean Grad 1.0 mmHg RVOT Mean Gr. 0.7 mmHg Tricuspid Valve RA Pressure 3.00 mmHg TR Vmax 2.50 m/s TR Peak Grad 24.9 mmHg RVSP (TR) 28.0 mmHg
== END 2025-03-21 05:47 ==
LOC: DI 05:27
PROVIDERS: PCP Student in an Organized Health Care Education/Training Program; Visit Provider Internal Medicine Cardiovascular Disease
DX: R01.1 Cardiac murmur, unspecified (principal); I36.1 Nonrheumatic tricuspid (valve) insufficiency
CPT/HCPCS: 93306

== ENCOUNTER 2025-07-04 13:24 | Outpatient (CLI) | payer BC, SELFPAY ==
[2025-07-04 13:44] LABS: Abs Immature Grans 0.02 10^3/uL (0.0-0.06); HCT 40.3 % (36.0-46.0); HGB 13.4 g/dL (11.2-15.7); Immature Grans % 0.3 %; MCH 29.3 pg (27.0-33.0); MCHC 33.3 % (32.0-36.0); MCV 88 fL (80-95); MPV 12.4 fL (8.0-11.0); Platelet Count 209 10^3/uL (130-400); RBC 4.57 10^6/uL (3.93-5.22); RDW 12.3 % (11.7-14.6); RDW-SD 39.7 fL; WBC 7.02 10^3/uL (4.4-10.8)
[2025-07-04 14:58] LABS: ALT < 7 U/L (10-49); AST 17 U/L (<34); Albumin 4.3 g/dL (3.2-5.0); Alkaline Phosphatase 57 U/L (46-116); Anion Gap 10 mmol/L (3-11); BUN 14 mg/dL (9-23); Bilirubin, Total 0.6 mg/dL (0.2-1.2); CO2 25.0 mmol/L (20.0-31.0); Calcium 9.2 mg/dL (8.3-10.6); Chloride 107 mmol/L (98-107); Glucose 104 mg/dL (74-106); Potassium 4.1 mmol/L (3.5-5.1); Sodium 142 mmol/L (136-145); Total Protein 6.8 g/dL (5.7-8.2)
[2025-07-12 17:28] LABS: Testosterone, Free 0.7 pg/mL (0.1-6.4)
== END 2025-07-04 13:25 | disposition home or self-care (01) ==
LOC: LBO 13:24
PROVIDERS: PCP Student in an Organized Health Care Education/Training Program; Visit Provider Naturopath
DX: N95.1 Menopausal and female climacteric states (principal); H93.13 Tinnitus, bilateral; R00.2 Palpitations; K59.09 Other constipation
CPT/HCPCS: 36415; 80053; 84402; 84403; 82670; 84144; 85025